=== PATIENT | female | born 1995 | race Caucasian/White ===

== ENCOUNTER 2018-09-04 10:19 | Emergency (ER) | payer BC ==
[2018-09-04 10:34] VITALS: BP 104/69
--- NOTE | 2018-09-04 10:48 | UC ---
Throat Pain/Nasal Harsha HPI - HPI Summary HPI Summary: nasal congestion x 2 weeks, runny nose PND, cough , sinus pain and pressure started 5 days ago , no fever, no chills, hx of recurrent sinusitis , some improvement with mucinex - History of Current Complaint Chief Complaint: UCGeneralIllness Stated Complaint: SINUS CONCERN Time Seen by Provider: 09/04/18 10:29 Hx Obtained From: Patient Hx Last Menstrual Period: August 17 ?: No Onset/Duration: Gradual Onset, Lasting Days - 10, Still Present Severity: Moderate Pain Intensity: 0 Cough: Nonproductive Associated Signs & Symptoms: Positive: Sinus Discomfort, Nasal Discharge. Negative: Dysphagia, FB Sensation, Drooling, Wheezing, Hoarseness, Fever, Vomiting, Rash - Allergies/Home Medications Allergies/Adverse Reactions: Allergies Allergy/AdvReac Type Severity Reaction Status Date / Time cefprozil [From Cefzil] Allergy Hives Verified 09/04/18 10:34 PMH/Surg Hx/FS Hx/Imm Hx Previously Healthy: Yes - Surgical History Surgical History: Yes Surgery Procedure, Year, and Place: tubes in ears. - Family History Known Family History: Negative: Diabetes - Social History Alcohol Use: Occasionally Substance Use Type: None Smoking Status (MU): Never Smoked Tobacco Review of Systems All Other Systems Reviewed And Are Negative: Yes Constitutional: Positive: Negative Skin: Positive: Negative Eyes: Positive: Negative ENT: Positive: Sore Throat, Nasal Discharge, Sinus Congestion, Sinus Pain/ Tenderness Respiratory: Positive: Cough Is Patient Immunocompromised?: No Physical Exam Triage Information Reviewed: Yes Appearance: Well-Appearing, No Pain Distress, Well-Nourished Vital Signs: Initial Vital Signs Temp 97.5 F 09/04/18 10:27 Pulse 68 09/04/18 10:27 Resp 18 09/04/18 10:27 BP 104/69 09/04/18 10:27 Pulse Ox 100 09/04/18 10:27 Vital Signs Reviewed: Yes Eye Exam: Normal Eyes: Positive: Conjunctiva Clear ENT: Positive: Normal ENT inspection, Hearing grossly normal, Pharynx normal, Nasal congestion, Nasal drainage, Sinus tenderness. Negative: TMs normal Neck: Positive: Supple, Nontender, No Lymphadenopathy Respiratory: Positive: Chest non-tender, Lungs clear, Normal breath sounds Cardiovascular: Positive: RRR, No Murmur, Pulses Normal Skin Exam: Normal Throat Pain/Nasal Course/Dx - Differential Dx/Diagnosis Provider Diagnosis: Sinusitis Discharge - Sign-Out/Discharge Documenting (check all that apply): Patient Departure All imaging exams completed and their final reports reviewed: No Studies - Discharge Plan Condition: Stable Disposition: HOME Prescriptions: Amoxicillin/Clavulanate TAB* [Augmentin TAB 875*] 875 mg PO BID #20 tab Fluticasone NASAL SPRAY 50MCG* [Flonase NASAL SPRAY 50MCG*] 2 spray BOTH NARES DAILY #1 btl Patient Education Materials: Sinusitis (ED) Referrals: Jorge A Zavala MD [Primary Care Provider] - If Needed - Billing Disposition and Condition Condition: STABLE Disposition: Home
== END 2018-09-04 10:50 | disposition home or self-care (01) ==
LOC: UCCORT 10:19
DX: J32.9 Chronic sinusitis, unspecified (principal); R05 Cough; R09.81 Nasal congestion; Z88.1 Allergy status to other antibiotic agents
CPT/HCPCS: 99212; G0463